=== PATIENT | female | born 1975 | race Caucasian/White ===

== ENCOUNTER 2022-08-04 19:40 | Inpatient (IN) | payer SELFPAY ==
[~2022-08-04 19:40] MED LIST: Iopamidol-370 76% 500 ML MDV (1 ML CHARGE) ONE
[2022-08-04] MEDS ORDERED: Diazepam 10 MG/2 ML SYRINGE ONE (20:04)
[2022-08-04 20:13] LABS: Hemoglobin 14.1 g/dL (12.0-16.0); Mean Corpuscular HGB CONC 34.8 g/dL (32.0-36.0); Mean Corpuscular Hemoglobin 31.6 pg (27.0-31.0); Mean Platelet Volume 7.7 fL (7.4-10.4); Platelet Count 323 10x3/uL (130-400); RBC Distribution Width 12.3 % (11.5-14.5); Red Blood Cell (RBC) Count 4.46 mill/uL (4.20-5.40); White Blood Cell (WBC) Count 20.1 10x3/uL (4.8-10.8)
[2022-08-04 20:28] LABS: ALT (SGPT) 42 U/L (8-55); AST (SGOT) 20 U/L (5-34); Albumin 4.3 g/dL (3.5-5.0); Alkaline Phosphatase 109 U/L (40-110); Anion Gap 17 mmol/L (10-20); BUN (Urea Nitrogen) 18 mg/dL (9.8-20.1); Bilirubin, Total 0.8 mg/dL (0.2-1.2); Calc. Creatinine Clearance 0 mL/min (70-130); Calcium 9.1 mg/dL (7.8-10.44); Carbon Dioxide 21 mmol/L (22-29); Chloride 103 mmol/L (98-107); Estimated GFR 43; Globulin 3.5 g/dL (2.4-3.5); Glucose 161 mg/dL (70-105); Lipase 30 U/L (8-78); Potassium 3.7 mmol/L (3.5-5.1); Protein, Total 7.8 g/dL (6.0-8.3); Sodium 137 mmol/L (136-145)
[2022-08-04 20:41] LABS: Band 3 % (5-11); Lymphocytes 17 % (21-51); MDiff Complete? YES; Monocytes 1 % (0-10); Neutrophil 78 % (42-75); Platelet Morphology Comment Appears Adequate; RBC Morphology Normal; Reactive Lymphocytes 1 % (0-10)
[2022-08-04] MEDS ORDERED: Azithromycin 500 MG VIAL ONE (21:33)
[2022-08-04] MEDS ORDERED: cefTRIAXone (ROCEPHIN) 2 GM VIAL ONE (21:33)
[2022-08-04] MEDS ORDERED: Morphine 4 MG/ML VIAL ONE (22:03)
[2022-08-04] MEDS ORDERED: Ondansetron PF 4 MG/2 ML Vial IVP PRN (23:06)
[2022-08-04] MEDS ORDERED: Ondansetron ODT 4 MG TAB PO PRN (23:06)
[2022-08-04] MEDS ORDERED: Senokot S 8.6-50 MG TAB PO PRN (23:06)
[2022-08-04] MEDS ORDERED: Furosemide 20 MG/2 ML VIAL SLOW IVP SCH (23:15)
[2022-08-05 00:32] LABS: SARS-CoV-2 NAA Rapid Test Not Detected (NotDetected)
[2022-08-05 01:06] VITALS: BMI 36.9
[2022-08-05 03:37] LABS: Legionella Urinary Ag Negative (Negative); Strep pneumo Urine Ag NEGATIVE (NEGATIVE)
[2022-08-05 04:50] LABS: #Basophils 0.1 thou/uL (0.0-0.2); #Eosinphils 0.1 thou/uL (0.0-0.7); #Lymphocytes 2.2 thou/uL (1.20-3.40); #Monocytes 1.5 thou/uL (0.11-0.59); #Neutrophils 17.3 thou/uL (1.40-6.50); %Basophils 0.3 % (0.0-1.0); %Eosinophils 0.2 % (0.0-10.0); %Lymphocytes 10.4 % (21.0-51.0); %Monocytes 7.1 % (0.0-10.0); Mean Corpuscular HGB CONC 34.9 g/dL (32.0-36.0); Mean Corpuscular Volume 91.8 fl (78.0-98.0); Platelet Count 275 10x3/uL (130-400); RBC Distribution Width 12.4 % (11.5-14.5); Red Blood Cell (RBC) Count 4.06 mill/uL (4.20-5.40); White Blood Cell (WBC) Count 21.1 10x3/uL (4.8-10.8)
[2022-08-05 04:58] LABS: Hemoglobin A1c 5.3 % (4.0-6.0)
[2022-08-05 05:17] LABS: Anion Gap 15 mmol/L (10-20); BUN (Urea Nitrogen) 15 mg/dL (7.0-18.7); Carbon Dioxide 20 mmol/L (22-29); Chloride 107 mmol/L (98-107); Potassium 3.8 mmol/L (3.5-5.1); Sodium 138 mmol/L (136-145)
[2022-08-05 05:18] LABS: Calc. Creatinine Clearance 123 mL/min (70-130); Calcium 8.3 mg/dL (7.8-10.44); Estimated GFR 68; Glucose 128 mg/dL (70-105)
[2022-08-05] MEDS: HYDROcodone/Acetaminophen 5/325 mg Tablet PO PRN ×3 (07:50→20:13)
[2022-08-05] MEDS: guaiFENesin ER 600 MG TAB PO SCH ×2 (07:50→21:51)
[2022-08-05] MEDS: Heparin 5,000 UNITS/ML VIAL SC SCH ×2 (07:51→20:12)
[2022-08-05] MEDS ORDERED: Iopamidol 370 76% 100 ML VIAL ONE (11:21)
[2022-08-05 12:41] LABS: Amphetamine Not Detected (NotDetected); Barbiturates Screen Not Detected (NotDetected); Benzodiazepine Screen Not Detected (NotDetected); Cocaine Metabolite Screen Not Detected (NotDetected); Methadone Not Detected (NotDetected); Methamphetamine Not Detected (NotDetected); Opiate Screen Detected (NotDetected); Oxycodone Screen Not Detected (NotDetected); Phencyclidine (PCP) Not Detected (NotDetected); THC/Cannabinoid Screen Not Detected (NotDetected); Tricyclic Screen Not Detected (NotDetected)
[2022-08-05 12:44] LABS: Bacteria/HPF 2+ HPF (None Seen); Bilirubin Negative (Negative); Blood, Urine Negative (Negative); CAUTI Indications for Culture Fever or rigors; Clarity Turbid (Clear); Glucose, Urine (Dipstick) Normal (Negative); Ketone, Urine Negative (Negative); Leukocyte 500 Leu/uL (Negative); Nitrite Negative (Negative); Protein, Urine (Dipstick) 20 mg/dL (Neg-Trace); RBC/HPF 0-3 HPF (0-3); Specific Gravity, Urine 1.027 (1.002-1.036); Urobilinogen Normal mg/dL (Less than 2); WBC/HPF Greater than 50 HPF (0-3); pH, Urine 5.5 (5.0-9.0)
[2022-08-05 12:49] LABS: Urine Culture Reflex Yes Yes
[2022-08-05] MEDS: cefTRIAXone\\ROCEPHIN 1 GM in Sodium Chloride 0.9% 100 ML IVPB SCH (20:12)
[2022-08-05] MEDS: Azithromycin 500 MG in Sodium Chloride 0.9% 250 ML 250 ML IVPB SCH (21:51)
[2022-08-06] MEDS: HYDROcodone/Acetaminophen 5/325 mg Tablet PO PRN ×4 (01:36→19:58)
[2022-08-06 06:25] LABS: #Basophils 0.1 thou/uL (0.0-0.2); #Eosinphils 0.1 thou/uL (0.0-0.7); #Lymphocytes 2.4 thou/uL (1.20-3.40); #Monocytes 1.3 thou/uL (0.11-0.59); #Neutrophils 14.5 thou/uL (1.40-6.50); %Basophils 0.3 % (0.0-1.0); %Eosinophils 0.3 % (0.0-10.0); %Lymphocytes 13.2 % (21.0-51.0); %Monocytes 7.1 % (0.0-10.0); %Neutrophils 79.1 % (42.0-75.0); Hemoglobin 13.5 g/dL (12.0-16.0); Mean Corpuscular HGB CONC 34.4 g/dL (32.0-36.0); Mean Corpuscular Hemoglobin 31.7 pg (27.0-31.0); Mean Corpuscular Volume 92.3 fl (78.0-98.0); Mean Platelet Volume 8.1 fL (7.4-10.4); Platelet Count 270 10x3/uL (130-400); RBC Distribution Width 12.5 % (11.5-14.5); Red Blood Cell (RBC) Count 4.26 mill/uL (4.20-5.40); White Blood Cell (WBC) Count 18.3 10x3/uL (4.8-10.8)
[2022-08-06 06:41] LABS: Anion Gap 14 mmol/L (10-20); BUN (Urea Nitrogen) 16 mg/dL (7.0-18.7); Calc. Creatinine Clearance 146 mL/min (70-130); Calcium 8.8 mg/dL (7.8-10.44); Carbon Dioxide 21 mmol/L (22-29); Chloride 106 mmol/L (98-107); Estimated GFR 84; Glucose 106 mg/dL (70-105); Potassium 3.8 mmol/L (3.5-5.1); Sodium 137 mmol/L (136-145)
[2022-08-06] MEDS: Heparin 5,000 UNITS/ML VIAL SC SCH ×2 (08:07→20:00)
[2022-08-06] MEDS: guaiFENesin ER 600 MG TAB PO SCH ×2 (08:07→19:59)
[2022-08-06] MEDS ORDERED: Furosemide 40 MG/4 ML VIAL SLOW IVP SCH (08:15)
[2022-08-06] MEDS: Azithromycin 500 MG in Sodium Chloride 0.9% 250 ML 250 ML IVPB SCH (19:59)
[2022-08-06] MEDS: cefTRIAXone\\ROCEPHIN 1 GM in Sodium Chloride 0.9% 100 ML IVPB SCH (19:59)
[2022-08-07] MEDS: HYDROcodone/Acetaminophen 5/325 mg Tablet PO PRN ×4 (00:38→20:33)
[2022-08-07] MEDS: guaiFENesin ER 600 MG TAB PO SCH ×2 (09:01→20:34)
[2022-08-07] MEDS: Heparin 5,000 UNITS/ML VIAL SC SCH ×2 (09:01→20:33)
[2022-08-07] MEDS: Furosemide 40 MG/4 ML VIAL SLOW IVP SCH (09:01)
[2022-08-07 12:51] LABS: Hemoglobin 14.6 g/dL (12.0-16.0); Mean Corpuscular HGB CONC 35.7 g/dL (32.0-36.0); Mean Corpuscular Hemoglobin 33.1 pg (27.0-31.0); Mean Corpuscular Volume 92.6 fl (78.0-98.0); Platelet Count 319 10x3/uL (130-400); RBC Distribution Width 12.3 % (11.5-14.5); Red Blood Cell (RBC) Count 4.42 mill/uL (4.20-5.40); White Blood Cell (WBC) Count 21.1 10x3/uL (4.8-10.8)
[2022-08-07 13:12] LABS: Anion Gap 19 mmol/L (10-20); BUN (Urea Nitrogen) 17 mg/dL (7.0-18.7); Band 7 % (5-11); Calc. Creatinine Clearance 131 mL/min (70-130); Calcium 8.9 mg/dL (7.8-10.44); Carbon Dioxide 21 mmol/L (22-29); Chloride 103 mmol/L (98-107); Estimated GFR 73; Glucose 114 mg/dL (70-105); Lymphocytes 14 % (21-51); MDiff Complete? YES; Monocytes 7 % (0-10); Neutrophil 72 % (42-75); Platelet Morphology Comment Appears Adequate; Potassium 4.2 mmol/L (3.5-5.1); RBC Morphology Normal; Sodium 139 mmol/L (136-145)
[2022-08-07] MEDS: cefTRIAXone\\ROCEPHIN 1 GM in Sodium Chloride 0.9% 100 ML IVPB SCH (21:49)
[2022-08-07] MEDS: Azithromycin 500 MG in Sodium Chloride 0.9% 250 ML 250 ML IVPB SCH (22:58)
[2022-08-08] MEDS: HYDROcodone/Acetaminophen 5/325 mg Tablet PO PRN ×5 (02:31→23:11)
[2022-08-08 05:38] LABS: #Eosinphils 0.1 thou/uL (0.0-0.7); #Monocytes 1.4 thou/uL (0.11-0.59); #Neutrophils 13.4 thou/uL (1.40-6.50); %Basophils 0.1 % (0.0-1.0); %Eosinophils 0.3 % (0.0-10.0); %Lymphocytes 11.9 % (21.0-51.0); %Monocytes 8.4 % (0.0-10.0); %Neutrophils 79.3 % (42.0-75.0); Hemoglobin 12.5 g/dL (12.0-16.0); Mean Corpuscular HGB CONC 33.5 g/dL (32.0-36.0); Mean Corpuscular Volume 92.5 fl (78.0-98.0); Mean Platelet Volume 8.2 fL (7.4-10.4); Platelet Count 295 10x3/uL (130-400); RBC Distribution Width 12.3 % (11.5-14.5); Red Blood Cell (RBC) Count 4.02 mill/uL (4.20-5.40); White Blood Cell (WBC) Count 16.9 10x3/uL (4.8-10.8)
[2022-08-08 05:43] LABS: Anion Gap 15 mmol/L (10-20); BUN (Urea Nitrogen) 18 mg/dL (7.0-18.7); Calc. Creatinine Clearance 146 mL/min (70-130); Calcium 8.8 mg/dL (7.8-10.44); Carbon Dioxide 24 mmol/L (22-29); Chloride 106 mmol/L (98-107); Estimated GFR 84; Glucose 123 mg/dL (70-105); Potassium 3.5 mmol/L (3.5-5.1); Sodium 141 mmol/L (136-145)
[2022-08-08] MEDS: guaiFENesin ER 600 MG TAB PO SCH ×2 (07:52→21:09)
[2022-08-08] MEDS: Furosemide 40 MG/4 ML VIAL SLOW IVP SCH (07:52)
[2022-08-08] MEDS: Heparin 5,000 UNITS/ML VIAL SC SCH ×2 (07:53→21:09)
[2022-08-08] MEDS: Azithromycin 500 MG in Sodium Chloride 0.9% 250 ML 250 ML IVPB SCH (21:08)
[2022-08-08] MEDS: Acetaminophen 325 MG TAB PO PRN (21:13)
[2022-08-08] MEDS: cefTRIAXone\\ROCEPHIN 1 GM in Sodium Chloride 0.9% 100 ML IVPB SCH (23:00)
[2022-08-09] MEDS: HYDROcodone/Acetaminophen 5/325 mg Tablet PO PRN ×5 (03:19→22:41)
[2022-08-09 05:20] LABS: #Eosinphils 0.1 thou/uL (0.0-0.7); #Monocytes 1.3 thou/uL (0.11-0.59); #Neutrophils 12.4 thou/uL (1.40-6.50); %Basophils 0.3 % (0.0-1.0); %Eosinophils 0.5 % (0.0-10.0); %Lymphocytes 12.4 % (21.0-51.0); %Monocytes 8.5 % (0.0-10.0); %Neutrophils 78.4 % (42.0-75.0); Mean Corpuscular HGB CONC 33.9 g/dL (32.0-36.0); Mean Corpuscular Hemoglobin 31.3 pg (27.0-31.0); Mean Corpuscular Volume 92.2 fl (78.0-98.0); Mean Platelet Volume 7.9 fL (7.4-10.4); Platelet Count 282 10x3/uL (130-400); RBC Distribution Width 12.2 % (11.5-14.5); Red Blood Cell (RBC) Count 3.84 mill/uL (4.20-5.40); White Blood Cell (WBC) Count 15.8 10x3/uL (4.8-10.8)
[2022-08-09 05:38] LABS: Anion Gap 16 mmol/L (10-20); BUN (Urea Nitrogen) 20 mg/dL (7.0-18.7); Calc. Creatinine Clearance 153 mL/min (70-130); Calcium 8.9 mg/dL (7.8-10.44); Carbon Dioxide 24 mmol/L (22-29); Chloride 105 mmol/L (98-107); Estimated GFR 89; Glucose 115 mg/dL (70-105); Potassium 3.5 mmol/L (3.5-5.1); Sodium 141 mmol/L (136-145)
[2022-08-09] MEDS: guaiFENesin ER 600 MG TAB PO SCH ×2 (07:45→19:24)
[2022-08-09] MEDS: Furosemide 40 MG/4 ML VIAL SLOW IVP SCH (07:45)
[2022-08-09] MEDS: Heparin 5,000 UNITS/ML VIAL SC SCH ×2 (07:45→19:24)
[2022-08-09] MEDS: Acetaminophen 325 MG TAB PO PRN ×2 (13:42→19:25)
[2022-08-09] MEDS: Benzonatate 100 MG CAP PO PRN (19:25)
[2022-08-10] MEDS: HYDROcodone/Acetaminophen 5/325 mg Tablet PO PRN ×4 (04:12→19:29)
[2022-08-10] MEDS: cefTRIAXone\\ROCEPHIN 1 GM in Sodium Chloride 0.9% 100 ML IVPB SCH (09:07)
[2022-08-10] MEDS: Heparin 5,000 UNITS/ML VIAL SC SCH ×2 (09:08→19:27)
[2022-08-10] MEDS: guaiFENesin ER 600 MG TAB PO SCH ×2 (09:08→19:28)
[2022-08-10] MEDS: Furosemide 40 MG/4 ML VIAL SLOW IVP SCH (09:08)
[2022-08-10 10:51] LABS: #Basophils 0.1 thou/uL (0.0-0.2); #Eosinphils 0.1 thou/uL (0.0-0.7); #Lymphocytes 2.4 thou/uL (1.20-3.40); #Monocytes 1.1 thou/uL (0.11-0.59); #Neutrophils 11.3 thou/uL (1.40-6.50); %Basophils 0.4 % (0.0-1.0); %Eosinophils 0.9 % (0.0-10.0); %Lymphocytes 16.1 % (21.0-51.0); %Monocytes 7.1 % (0.0-10.0); %Neutrophils 75.5 % (42.0-75.0); Hemoglobin 14.2 g/dL (12.0-16.0); Mean Corpuscular HGB CONC 35.4 g/dL (32.0-36.0); Mean Corpuscular Hemoglobin 32.4 pg (27.0-31.0); Mean Corpuscular Volume 91.7 fl (78.0-98.0); Platelet Count 332 10x3/uL (130-400); RBC Distribution Width 12.3 % (11.5-14.5); Red Blood Cell (RBC) Count 4.37 mill/uL (4.20-5.40)
[2022-08-10 11:11] LABS: Anion Gap 17 mmol/L (10-20); BUN (Urea Nitrogen) 19 mg/dL (7.0-18.7); Calc. Creatinine Clearance 146 mL/min (70-130); Calcium 9.1 mg/dL (7.8-10.44); Carbon Dioxide 25 mmol/L (22-29); Chloride 100 mmol/L (98-107); Estimated GFR 84; Glucose 123 mg/dL (70-105); Potassium 3.3 mmol/L (3.5-5.1); Sodium 139 mmol/L (136-145)
[2022-08-10] MEDS: Acetaminophen 325 MG TAB PO PRN ×2 (11:57→18:02)
[2022-08-10 14:12] LABS: Fluid, pH - Pleural Fld 7.15 (7.60 - 7.66)
[2022-08-10 14:52] LABS: RBC Count-Automated (BF) 408 /cu.mm; WBC/Nucleated-Auto (BF) 396 /cu.mm
[2022-08-10 15:11] LABS: Pleural Fluid, Amylase Less than 30 U/L (Not Available); Pleural Fluid, Glucose 52 mg/dL; Pleural Fluid, LDH 1968 U/L (Not Available)
[2022-08-10 15:33] LABS: BF Color Yellow; Body Fluid Source Pleural Fluid; Clarity Hazy (Clear); Tube # EDTA
[2022-08-10 15:59] LABS: BF Segmented Neutrophils 76 %; Cell Count Non Hematic 19 %; Lymphocytes 5 %
[2022-08-11] MEDS: HYDROcodone/Acetaminophen 5/325 mg Tablet PO PRN ×2 (00:45→04:55)
[2022-08-11] MEDS ORDERED: Bupivacaine HCl 0.5%/Epinephrine 1:200,000/PF 30 ml Vial ONE (07:03)
[2022-08-11] MEDS ORDERED: Midazolam HCl 2 mg/2 ml Vial ONE (07:07)
[2022-08-11] MEDS ORDERED: Norepinephrine 4 MG/4 ML VIAL ONE (07:07)
[2022-08-11] MEDS ORDERED: SUGAMMADEX SODIUM 200 MG/2 ML VIAL ONE (07:07)
[2022-08-11] MEDS ORDERED: Rocuronium Bromide 50 MG/5 ML VIAL ONE (07:07)
[2022-08-11] MEDS ORDERED: Vasopressin 20 UNITS/ML VIAL ONE (07:07)
[2022-08-11] MEDS ORDERED: Fentanyl 250 MCG/5 ML VIAL ONE ×2 (07:07→13:10)
[2022-08-11 08:04] LABS: #Eosinphils 0.4 thou/uL (0.0-0.7); #Lymphocytes 2.3 thou/uL (1.20-3.40); %Basophils 0.2 % (0.0-1.0); %Lymphocytes 19.8 % (21.0-51.0); %Monocytes 8.8 % (0.0-10.0); %Neutrophils 68.2 % (42.0-75.0); Hemoglobin 12.8 g/dL (12.0-16.0); Mean Corpuscular HGB CONC 32.8 g/dL (32.0-36.0); Mean Corpuscular Hemoglobin 30.4 pg (27.0-31.0); Mean Corpuscular Volume 92.5 fl (78.0-98.0); Mean Platelet Volume 7.5 fL (7.4-10.4); Platelet Count 339 10x3/uL (130-400); RBC Distribution Width 12.2 % (11.5-14.5); White Blood Cell (WBC) Count 11.7 10x3/uL (4.8-10.8)
[2022-08-11 08:26] LABS: Anion Gap 17 mmol/L (10-20); BUN (Urea Nitrogen) 25 mg/dL (7.0-18.7); Calc. Creatinine Clearance 146 mL/min (70-130); Calcium 9.2 mg/dL (7.8-10.44); Carbon Dioxide 28 mmol/L (22-29); Chloride 99 mmol/L (98-107); Estimated GFR 84; Glucose 106 mg/dL (70-105); Potassium 3.7 mmol/L (3.5-5.1); Sodium 140 mmol/L (136-145)
[2022-08-11] MEDS ORDERED: cefTRIAXone (ROCEPHIN) 1 GM VIAL ONE (09:16)
[2022-08-11] MEDS ORDERED: Sodium Chloride 0.9% 100 ML ONE (09:16)
[2022-08-11 10:04] LABS: BHCG - Serum Negative (NEGATIVE); Pregs Control Background? CLEAR/WHITE (CLR/WHITE); Pregs Control Bar Appear? YES (CONTROL BAR)
[2022-08-11] MEDS ORDERED: PROPOFOL 200 MG/20 ML VIAL ONE (10:09)
[2022-08-11] MEDS ORDERED: Ondansetron PF 4 MG/2 ML Vial ONE (10:09)
[2022-08-11] MEDS ORDERED: Rocuronium Bromide 10 MG/ML (10ML VIAL) ONE (10:09)
[2022-08-11] MEDS ORDERED: Dexamethasone 20 MG/5 ML VIAL ONE (10:09)
[2022-08-11] MEDS ORDERED: Lidocaine 1% PF 5 ML VIAL ONE (10:09)
[2022-08-11] MEDS ORDERED: Naloxone HCl 0.4 mg/ml Vial IV PRN (13:24)
[2022-08-11] MEDS ORDERED: Promethazine HCl 25 MG/ML VIAL IM PRN (13:24)
[2022-08-11] MEDS ORDERED: HYDROmorphone 10 mg/100 ml CADD IVPB PRN (13:24)
[2022-08-11] MEDS ORDERED: diphenhydrAMINE 50 MG/ML VIAL IVP PRN (13:24)
[2022-08-11] MEDS ORDERED: diphenhydrAMINE 50 MG/ML VIAL IM PRN (13:24)
[2022-08-11] MEDS ORDERED: diphenhydrAMINE 25 MG CAP PO PRN (13:24)
[2022-08-11] MEDS ORDERED: Ondansetron PF 4 MG/2 ML Vial IVP PRN (13:24)
[2022-08-11] MEDS ORDERED: Zolpidem Tartrate 5 MG TAB PO PRN (13:24)
[2022-08-11] MEDS ORDERED: Communication Order-Pharmacy FS SCH (13:30)
[2022-08-11] MEDS ORDERED: Promethazine HCl 25 MG/ML VIAL ONE (13:55)
[2022-08-11] MEDS ORDERED: Ondansetron HCl/PF 4 MG/2 ML Vial IVP PRN (14:15)
[2022-08-11] MEDS ORDERED: Promethazine HCl 25 MG/ML VIAL IM/IV PRN (14:15)
[2022-08-11] MEDS ORDERED: HYDROmorphone 2 MG/ML VIAL SLOW IVP PRN (14:15)
[2022-08-11] MEDS: cefTRIAXone\\ROCEPHIN 1 GM in Sodium Chloride 0.9% 100 ML IVPB SCH (14:45)
[2022-08-11] MEDS: Furosemide 40 MG/4 ML VIAL SLOW IVP SCH (14:46)
[2022-08-11] MEDS: Heparin 5,000 UNITS/ML VIAL SC SCH ×2 (14:46→20:39)
[2022-08-11] MEDS: guaiFENesin ER 600 MG TAB PO SCH ×2 (14:46→20:39)
[2022-08-11] MEDS: Lactated Ringer's 1,000 ML IV SCH ×2 (17:10→20:50)
[2022-08-12 08:59] LABS: #Eosinphils 0.1 thou/uL (0.0-0.7); #Lymphocytes 2.6 thou/uL (1.20-3.40); #Monocytes 1.5 thou/uL (0.11-0.59); #Neutrophils 12.2 thou/uL (1.40-6.50); %Basophils 0.2 % (0.0-1.0); %Eosinophils 0.6 % (0.0-10.0); %Lymphocytes 15.9 % (21.0-51.0); %Neutrophils 74.3 % (42.0-75.0); Hemoglobin 11.8 g/dL (12.0-16.0); Mean Corpuscular HGB CONC 30.8 g/dL (32.0-36.0); Mean Corpuscular Hemoglobin 28.8 pg (27.0-31.0); Mean Corpuscular Volume 93.6 fl (78.0-98.0); Mean Platelet Volume 7.5 fL (7.4-10.4); Platelet Count 373 10x3/uL (130-400); RBC Distribution Width 12.4 % (11.5-14.5); Red Blood Cell (RBC) Count 4.09 mill/uL (4.20-5.40); White Blood Cell (WBC) Count 16.5 10x3/uL (4.8-10.8)
[2022-08-12] MEDS ORDERED: oxyCODONE 5 MG TAB PO PRN (09:09)
[2022-08-12] MEDS ORDERED: fentaNYL 50 mcg/mL 1 mL Vial SLOW IVP PRN (09:11)
[2022-08-12 09:17] LABS: Anion Gap 15 mmol/L (10-20); BUN (Urea Nitrogen) 17 mg/dL (7.0-18.7); Calc. Creatinine Clearance 154 mL/min (70-130); Calcium 8.1 mg/dL (7.8-10.44); Carbon Dioxide 22 mmol/L (22-29); Chloride 101 mmol/L (98-107); Estimated GFR 90; Glucose 148 mg/dL (70-105); Sodium 134 mmol/L (136-145)
[2022-08-12] MEDS: cefTRIAXone\\ROCEPHIN 1 GM in Sodium Chloride 0.9% 100 ML IVPB SCH (09:45)
[2022-08-12] MEDS: Furosemide 40 MG/4 ML VIAL SLOW IVP SCH (09:45)
[2022-08-12] MEDS: guaiFENesin ER 600 MG TAB PO SCH ×2 (09:45→21:33)
[2022-08-12] MEDS: Heparin 5,000 UNITS/ML VIAL SC SCH ×2 (09:46→21:33)
[2022-08-12] MEDS: Polyethylene Glycol 3350 17 GM Packet PO SCH (09:46)
[2022-08-12] MEDS: Acetaminophen 500 MG TAB PO SCH ×3 (09:50→21:33)
[2022-08-12] MEDS: oxyCODONE 5 MG TAB PO PRN ×3 (09:51→21:32)
[2022-08-12] MEDS: Lactated Ringer's 1,000 ML IV SCH (18:47)
[2022-08-13] MEDS: oxyCODONE 5 MG TAB PO PRN ×4 (02:44→15:57)
[2022-08-13] MEDS: Acetaminophen 500 MG TAB PO SCH ×4 (04:49→21:01)
[2022-08-13] MEDS: guaiFENesin ER 600 MG TAB PO SCH ×2 (09:15→21:01)
[2022-08-13] MEDS: Heparin 5,000 UNITS/ML VIAL SC SCH ×2 (09:16→21:01)
[2022-08-13] MEDS: Polyethylene Glycol 3350 17 GM Packet PO SCH (09:16)
[2022-08-13] MEDS: cefTRIAXone\\ROCEPHIN 1 GM in Sodium Chloride 0.9% 100 ML IVPB SCH (09:17)
[2022-08-13] MEDS ORDERED: Morphine 4 MG/ML VIAL SLOW IVP PRN (11:10)
[2022-08-13] MEDS ORDERED: Morphine 2 MG/ML VIAL SLOW IVP PRN (11:10)
[2022-08-13 11:19] LABS: #Basophils 0.1 thou/uL (0.0-0.2); #Eosinphils 0.3 thou/uL (0.0-0.7); #Lymphocytes 2.8 thou/uL (1.20-3.40); #Monocytes 0.7 thou/uL (0.11-0.59); #Neutrophils 9.6 thou/uL (1.40-6.50); %Basophils 0.5 % (0.0-1.0); %Eosinophils 1.9 % (0.0-10.0); %Lymphocytes 20.9 % (21.0-51.0); %Monocytes 5.4 % (0.0-10.0); %Neutrophils 71.3 % (42.0-75.0); Hemoglobin 11.6 g/dL (12.0-16.0); Mean Corpuscular HGB CONC 31.6 g/dL (32.0-36.0); Mean Corpuscular Hemoglobin 30.9 pg (27.0-31.0); Mean Corpuscular Volume 97.5 fl (78.0-98.0); Mean Platelet Volume 7.6 fL (7.4-10.4); Platelet Count 341 10x3/uL (130-400); RBC Distribution Width 12.3 % (11.5-14.5); Red Blood Cell (RBC) Count 3.75 mill/uL (4.20-5.40); White Blood Cell (WBC) Count 13.4 10x3/uL (4.8-10.8)
[2022-08-13] MEDS: Ketorolac Tromethamine 30 MG/ML VIAL IVP SCH ×3 (11:44→23:25)
[2022-08-14] MEDS: oxyCODONE 5 MG TAB PO PRN ×3 (03:51→15:03)
[2022-08-14] MEDS: Acetaminophen 500 MG TAB PO SCH ×4 (03:51→21:13)
[2022-08-14] MEDS: Ketorolac Tromethamine 30 MG/ML VIAL IVP SCH ×3 (06:22→17:18)
[2022-08-14 06:47] LABS: #Eosinphils 0.4 thou/uL (0.0-0.7); #Lymphocytes 2.7 thou/uL (1.20-3.40); #Monocytes 0.8 thou/uL (0.11-0.59); #Neutrophils 8.3 thou/uL (1.40-6.50); %Basophils 0.1 % (0.0-1.0); %Eosinophils 3.2 % (0.0-10.0); %Lymphocytes 22.1 % (21.0-51.0); %Monocytes 6.5 % (0.0-10.0); %Neutrophils 68.1 % (42.0-75.0); Mean Corpuscular HGB CONC 31.4 g/dL (32.0-36.0); Mean Corpuscular Hemoglobin 29.6 pg (27.0-31.0); Mean Corpuscular Volume 94.4 fl (78.0-98.0); Mean Platelet Volume 7.3 fL (7.4-10.4); Platelet Count 340 10x3/uL (130-400); RBC Distribution Width 12.4 % (11.5-14.5); Red Blood Cell (RBC) Count 3.71 mill/uL (4.20-5.40); White Blood Cell (WBC) Count 12.3 10x3/uL (4.8-10.8)
[2022-08-14 07:05] LABS: Anion Gap 13 mmol/L (10-20); BUN (Urea Nitrogen) 19 mg/dL (7.0-18.7); Calc. Creatinine Clearance 169 mL/min (70-130); Calcium 8.4 mg/dL (7.8-10.44); Carbon Dioxide 26 mmol/L (22-29); Chloride 102 mmol/L (98-107); Estimated GFR 100; Glucose 104 mg/dL (70-105); Sodium 137 mmol/L (136-145)
[2022-08-14] MEDS: guaiFENesin ER 600 MG TAB PO SCH ×2 (09:17→21:13)
[2022-08-14] MEDS: Heparin 5,000 UNITS/ML VIAL SC SCH ×2 (09:17→21:13)
[2022-08-14] MEDS: Polyethylene Glycol 3350 17 GM Packet PO SCH (09:18)
[2022-08-15] MEDS: Ketorolac Tromethamine 30 MG/ML VIAL IVP SCH ×3 (00:15→12:02)
[2022-08-15] MEDS: Benzonatate 100 MG CAP PO PRN (00:21)
[2022-08-15] MEDS: Acetaminophen 500 MG TAB PO SCH ×2 (04:36→09:16)
[2022-08-15 04:41] VITALS: TEMP 97.9
[2022-08-15 07:28] LABS: #Eosinphils 0.4 thou/uL (0.0-0.7); #Lymphocytes 2.8 thou/uL (1.20-3.40); #Monocytes 0.6 thou/uL (0.11-0.59); #Neutrophils 7.2 thou/uL (1.40-6.50); %Basophils 0.4 % (0.0-1.0); %Lymphocytes 24.9 % (21.0-51.0); %Monocytes 5.6 % (0.0-10.0); Hemoglobin 10.9 g/dL (12.0-16.0); Mean Corpuscular HGB CONC 33.1 g/dL (32.0-36.0); Mean Corpuscular Hemoglobin 31.1 pg (27.0-31.0); Mean Corpuscular Volume 93.8 fl (78.0-98.0); Mean Platelet Volume 7.5 fL (7.4-10.4); Platelet Count 360 10x3/uL (130-400); RBC Distribution Width 12.3 % (11.5-14.5); Red Blood Cell (RBC) Count 3.52 mill/uL (4.20-5.40)
[2022-08-15 07:49] LABS: Anion Gap 13 mmol/L (10-20); BUN (Urea Nitrogen) 20 mg/dL (7.0-18.7); Calc. Creatinine Clearance 156 mL/min (70-130); Calcium 8.3 mg/dL (7.8-10.44); Carbon Dioxide 24 mmol/L (22-29); Chloride 103 mmol/L (98-107); Estimated GFR 91; Glucose 98 mg/dL (70-105); Potassium 4.1 mmol/L (3.5-5.1); Sodium 136 mmol/L (136-145)
[2022-08-15] MEDS: guaiFENesin ER 600 MG TAB PO SCH (09:18)
[2022-08-15] MEDS: Heparin 5,000 UNITS/ML VIAL SC SCH (09:18)
[2022-08-15] MEDS: Polyethylene Glycol 3350 17 GM Packet PO SCH (09:19)
[2022-08-15 12:00] VITALS: BP 116/86
== END 2022-08-15 14:12 | disposition home or self-care (01) | DRG 853 ==
LOC: EDBD 19:40 → ERS 19:40 → 2SW 22:34 → OBSVTOIN 08-05 10:56 → SURG A 08-11 15:32
PROVIDERS: ADMIT Internal Medicine; ATTEND Hospitalist
PROC: 3E03329 Introduction of Other Anti-infective into Peripheral Vein, Percutaneous Approach (ICD-10-PCS; 2022-08-05)
PROC: 0W9B3ZZ Drainage of Left Pleural Cavity, Percutaneous Approach (ICD-10-PCS; 2022-08-10)
PROC: 0BNF0ZZ Release Right Lower Lung Lobe, Open Approach (ICD-10-PCS; principal; 2022-08-11)
PROC: 0BNJ0ZZ Release Left Lower Lung Lobe, Open Approach (ICD-10-PCS; 2022-08-11)
PROC: 0BNJ4ZZ Release Left Lower Lung Lobe, Percutaneous Endoscopic Approach (ICD-10-PCS; 2022-08-11)
PROC: 0BNG4ZZ Release Left Upper Lung Lobe, Percutaneous Endoscopic Approach (ICD-10-PCS; 2022-08-11)
PROC: 0BNC4ZZ Release Right Upper Lung Lobe, Percutaneous Endoscopic Approach (ICD-10-PCS; 2022-08-11)
PROC: 0BNF4ZZ Release Right Lower Lung Lobe, Percutaneous Endoscopic Approach (ICD-10-PCS; 2022-08-11)
PROC: 3E033XZ Introduction of Vasopressor into Peripheral Vein, Percutaneous Approach (ICD-10-PCS; 2022-08-11)
DX: A41.9 Sepsis, unspecified organism (principal); J18.9 Pneumonia, unspecified organism; J96.01 Acute respiratory failure with hypoxia; J90 Pleural effusion, not elsewhere classified; N17.9 Acute kidney failure, unspecified; N39.0 Urinary tract infection, site not specified; I10 Essential (primary) hypertension; R73.9 Hyperglycemia, unspecified; I07.1 Rheumatic tricuspid insufficiency; Z20.822 Contact with and (suspected) exposure to COVID-19; Z88.0 Allergy status to penicillin; Z90.49 Acquired absence of other specified parts of digestive tract; I25.2 Old myocardial infarction
CPT/HCPCS: 36415; 71045; 71046; 71250; 71275; 74177; 80048; 80053; 80306; 81001; 82150; 82945; 83036; 83605; 83615; 83690; 83735; 83880; 83986; 84145; 84157; 84484; 84703; 85025; 85060; 85379; 86140; 87040; 87070; 87077; 87086; 87205; 87449; 87899; 89051; 93005; 93306; 93970; 94640; 96365; 96367; 96375; C1729; G0378; J0456; J0696; J1100; J1642; J1644; J1885; J1940; J2250; J2270; J2272; J2405; J2550; J2704; J3010; J3360; J3490; J7050; J7120; J7611; Q9967; U0002